=== PATIENT | male | born 1995 | race Two or more races ===

== ENCOUNTER 2020-09-16 01:27 | Emergency (ER) | payer SELFPAY ==
[~2020-09-16] VITALS: Ht 175.3 cm; Wt 90.7 kg
[2020-09-16 03:37] VITALS: BP 135/86
[2020-09-16] MEDS ORDERED: NEOMYCIN-BACITRACIN-POLYM UNITDOSE PKG TOP OINT TOP ONE (04:45)
[2020-09-16] MEDS ORDERED: TETANUS-DIPTH-ACEL PERTUSSIS 0.5ML SYR Tdap IM ONE (04:45)
[2020-09-16] MEDS ORDERED: cefTRIAXone SOD 1,000 MG VL IM ONE (04:45)
== END 2020-09-16 05:12 | disposition home or self-care (01) ==
LOC: ER 01:27
DX: S51.812A Laceration without foreign body of left forearm, initial encounter (principal); X58.XXXA Exposure to other specified factors, initial encounter; Y93.89 Activity, other specified; Y92.89 Other specified places as the place of occurrence of the external cause; Y99.8 Other external cause status
CPT/HCPCS: 12004; 73090; 90471; 90715; 96372; 99284; J0696